=== PATIENT | female | born 1995 | race Two or more races ===

== ENCOUNTER 2025-03-25 08:37 | Outpatient (CLI) | payer OTHER | END 2025-03-25 08:50 | disposition home or self-care (01) | LOC: PRENATAL 08:37 | PROVIDERS: ATTEND Obstetrics & Gynecology Maternal & Fetal Medicine | DX: O44.00 Complete placenta previa NOS or without hemorrhage, unspecified trimester (principal); O36.1999 Maternal care for other isoimmunization, unspecified trimester, other fetus; Z3A.19 19 weeks gestation of pregnancy ==

== ENCOUNTER → 2025-06-24 14:27 | Outpatient (CLI) | payer OTHER | END | disposition home or self-care (01) | LOC: PRENATAL 14:27 | PROVIDERS: ATTEND Obstetrics & Gynecology Maternal & Fetal Medicine | DX: O26.843 Uterine size-date discrepancy, third trimester (principal); O36.8130 Decreased fetal movements, third trimester, not applicable or unspecified; O36.1930 Maternal care for other isoimmunization, third trimester, not applicable or unspecified; O99.013 Anemia complicating pregnancy, third trimester; Z3A.32 32 weeks gestation of pregnancy ==